=== PATIENT | male | born 1940 | race Asian ===

== ENCOUNTER 2023-11-14 10:46 | Day surgery (SDC) | payer MEDICARE, OTHER ==
[~2023-11-14] VITALS: Ht 154.9 cm; Wt 52.6 kg
[2023-11-14] MEDS ORDERED: fentaNYL citrate 0.05 MG/ML VIAL ONE (12:25)
[2023-11-14] MEDS ORDERED: MIDAZOLAM 2 MG/2 ML VIAL ONE (12:25)
[2023-11-14] MEDS: MIDAZOLAM 2 MG/2 ML VIAL IVP ONE (12:52)
[2023-11-14] MEDS: MISC INJECTION IV SCH (13:02)
== END 2023-11-14 15:05 | disposition home or self-care (01) ==
LOC: MOR 10:46 → MMU 10:47 → MOR 15:05
PROVIDERS: ATTEND Internal Medicine Gastroenterology
DX: R13.10 Dysphagia, unspecified (principal); I10 Essential (primary) hypertension; E78.00 Pure hypercholesterolemia, unspecified; G30.9 Alzheimer's disease, unspecified; Z79.899 Other long term (current) drug therapy; Z98.890 Other specified postprocedural states
CPT/HCPCS: 43236; J2250; J3010

== ENCOUNTER 2023-12-05 09:15 | Day surgery (SDC) | payer MEDICARE, OTHER ==
[~2023-12-05] VITALS: Ht 154.9 cm; Wt 44.5 kg
[2023-12-05] MEDS ORDERED: fentaNYL citrate 0.05 MG/ML VIAL ONE (10:43)
[2023-12-05] MEDS ORDERED: MIDAZOLAM 2 MG/2 ML VIAL ONE (10:44)
[2023-12-05] MEDS ORDERED: ceFAZolin 1,000 MG VIAL ONE (11:06)
[2023-12-06] MEDS: MIDAZOLAM 2 MG/2 ML VIAL IVP ONE (10:52)
[2023-12-06] MEDS: fentaNYL citrate 0.05 MG/ML VIAL IVP ONE (10:53)
== END 2023-12-05 13:30 | disposition home or self-care (01) ==
LOC: MMU 09:15 → MDS 09:15
PROVIDERS: ATTEND Internal Medicine Gastroenterology
DX: R13.10 Dysphagia, unspecified (principal); K22.0 Achalasia of cardia; Q39.6 Congenital diverticulum of esophagus; I10 Essential (primary) hypertension; E78.00 Pure hypercholesterolemia, unspecified; Z79.899 Other long term (current) drug therapy; Z98.890 Other specified postprocedural states
CPT/HCPCS: 43246; J0690; J2250; J3010; J7060